=== PATIENT | male | born 1995 | race Caucasian/White ===

== ENCOUNTER 2017-07-11 08:59 | Emergency (ER) | payer OTHER ==
[~2017-07-11] VITALS: Ht 190.5 cm; Wt 94.7 kg
[~2017-07-11 08:59] MED LIST: ALLEGRA60 MG; FIORICET,ESG1 TABLET PO; VERAPAMIL HCL40 MG PO
[2017-07-11 09:52] LABS: ADD MIUA? NO; BILIRUBIN NEGATIVE; BLOOD NEGATIVE; COLOR YELLOW ((YELLOW)); GLUCOSE (STRIP) NEGATIVE; KETONES NEGATIVE; LEUKOCYTES NEGATIVE; NITRITE NEGATIVE; PROTEIN (STRIP) NEGATIVE; SPECIFIC GRAVITY 1.011 (1.000-1.030); UROBILINOGEN 0.2 MG/DL (0.2-1.0)
[2017-07-11 10:07] LABS: HEMATOCRIT 44.2 % (38.0-50.0); MCH 30.1 PG (29.0-34.0); MCHC 34.6 G/DL (30.0-36.0); MCV 86.8 FL (86-99); MEAN PLAT.VOLUME 8.7 uM^3 (9.0-12.4); PLATELET COUNT 235 K/uL (156-360); RBC DIS.WIDTH-CV 11.4 % (11.8-14.6); RBC DIS.WIDTH-SD 36.6 % (39-53); RED BLOOD COUNT 5.09 M/uL (4.00-5.50); WHITE BLOOD COUNT 6.2 K/uL (4.1-10.2)
[2017-07-11 10:18] LABS: CHLORIDE 102 mEq/L (99-109); POTASSIUM 4.5 mEq/L (3.7-5.4); SODIUM 137 mEq/L (136-147)
[2017-07-11 10:19] LABS: GLUCOSE 84 mg/dL (70-99)
[2017-07-11 10:21] LABS: ANION GAP 10 MEQ/L (2-14)
[2017-07-11 10:23] LABS: GFR ESTIMATE (CALCULATED) > 59 mL/min/
[2017-07-11 10:24] LABS: UREA NITROGEN (BUN) 14 mg/dL (9-23)
[2017-07-11 10:54] LABS: ABS NEUTROPHIL COUNT 3.8; ATYPICAL LYMPHOCYTE 13.9 %; BAND NEUTROPHILS 1.7 % (0-8.0); BASOPHILS 1.8 %; EOSINOPHIL ABS CT 0.2; EOSINOPHILS 3.5 % (0-5.0); INSTRUMENT ABS NEUTROPHIL CT 3.3 K/uL; LYMPHOCYTES 13.9 % (15.0-45.0); PLAT.SUFFICIENCY ADEQUATE
[2017-07-11 11:49] VITALS: BP 141/85
== END 2017-07-11 11:49 | disposition home or self-care (01) ==
LOC: EME 08:59
PROVIDERS: Emergency Medicine
PROC: 0T9B70Z Drainage of Bladder with Drainage Device, Via Natural or Artificial Opening (ICD-10-PCS; principal; 2017-07-11)
DX: R33.9 Retention of urine, unspecified (principal); K59.00 Constipation, unspecified
CPT/HCPCS: 74176; 80048; 81003; 85025; 99281; 99283